=== PATIENT | female | born 1950 | race Caucasian/White ===

== ENCOUNTER 2019-06-15 16:44 | Emergency (ER) | payer MEDICARE, OTHER, SELFPAY ==
[~2019-06-15] VITALS: Ht 160 cm; Wt 82.0 kg
--- NOTE | 2019-06-15 17:04 | NUR ---
THIS IS A 69 YO FEMALE BIB [facility] FOR ETOH INTOXICATION. PATIENT FOUND LAYING ON SIDEWALK WITH BOTTLE OF [place]THER[place] COMFORT IN FRONT OF [employer]. PATIENT DENIES USE OF ANY RECREATIONAL OR PRESCRIPTION DRUGS, DENIES ANY MEDICAL HX. BLOOD GLUCOSE EN ROUTE WITH [facility] 199. PATIENT DENIES SI/HI. PLACED ON SKILL LABOR, NSR NOTED. ON CONTINUOUS SPO2, CYCLE BP Q1HR. PATIETN DESAT TO 77%, NON-REBREATHER STARTED AT 12L, BACK UP TO 98%. CHANGED OUT TO NC AT 2.5 L, MAINTAINING 98%.
--- NOTE | 2019-06-15 17:04 | NUR ---
[facility]) [phone]
[2019-06-15 17:40] LABS: BASOPHILS # (AUTO) 0.03 x10^3/uL (0-0.1); BASOPHILS % (AUTO) 0 % (0-1); EOSINOPHILS # (AUTO) 0.13 x10^3/uL (0-0.4); EOSINOPHILS % (AUTO) 2 % (1-7); LYMPHOCYTES # (AUTO) 2.25 x10^3/uL (1-3.4); LYMPHOCYTES % (AUTO) 30 % (22-44); MD NO; MEAN CORPUSCULAR HEMOGLOBIN 30.6 pg (27.0-34.8); MEAN CORPUSCULAR HGB CONC 33.6 g/dL (32.4-35.8); MEAN PLATELET VOLUME 7.7 fL (7.4-10.4); MONOCYTES # (AUTO) 0.38 x10^3/uL (0.2-0.8); MONOCYTES % (AUTO) 5 % (2-9); NEUTROPHILS % (AUTO) 63 % (42-75); PLATELET COUNT 287 x10^3/uL (130-400); RED BLOOD COUNT 5.25 x10^6/uL (3.82-5.3); RED CELL DISTRIBUTION WIDTH 13.3 % (9.6-15.2)
--- NOTE | 2019-06-15 17:45 | NUR ---
PATIENT SLEEPING, RESPIRATIONS EVEN AND UNLABORED. VSS, NAD, CALL LIGHT IN REACH.
[2019-06-15 17:54] LABS: ALBUMIN 3.9 g/dL (3.4-5.0); ANION GAP 5 mmol/L (5-15); CALCIUM 9.7 mg/dL (8.5-10.1); CHLORIDE 112 mmol/L (98-107); CREATININE 0.81 mg/dL (0.55-1.02)
--- NOTE | 2019-06-15 19:30 | NUR ---
PATIENT ABLE TO COMMUNICATE WITH CLEAR SPEECH. ABLE TO AMBULATE AND DRESS SELF. PATIENT STATES SHE HAS MONEY TO TAKE THE BUS TO A SAFE PLACE TO STAY ([facility]).
[2019-06-15 20:33] VITALS: BP 107/82
== END 2019-06-15 20:36 | disposition home or self-care (01) ==
LOC: ED 20:30
DX: F10.220 Alcohol dependence with intoxication, uncomplicated (principal); Y90.9 Presence of alcohol in blood, level not specified
CPT/HCPCS: 36415; 80048; 80307; 82040; 85025; 99283